=== PATIENT | female | born 1995 | race Two or more races ===

== ENCOUNTER 2018-06-05 01:57 | Emergency (ER) | payer MEDICAID ==
[~2018-06-05] VITALS: Ht 152.4 cm; Wt 59.0 kg
[2018-06-05] MEDS ORDERED: NKM (02:08)
--- NOTE | 2018-06-05 02:27 | Emergency Room Report ---
History of Present Illness General Chief Complaint: Chest Pain Source: Patient Present Illness HPI Patient presents with complaint of pain to the left upper chest patient reports of a specific pinpoint region with sharp stabbing type pain she has had this off -and-on for the past several months tonight however she felt that lasted for over the past 2 hours Denies any shortness of breath or pleurisy with this denies any vomiting or diarrhea and eyes any heaviness denies any recent trauma denies any medications Patient reports that she was essentially leaving in-laws house and sitting in the car she felt the discomfort Allergies: Coded Allergies: No Known Allergies (Unverified , 06/05/18) Patient History Past Medical History: see triage record Pertinent Family History: none Last Menstrual Period: 05/15/18 Now: No : 0 Para: 0 Reviewed Nursing Documentation: PMH: Agreed; PSxH: Agreed Nursing Documentation-PMH Past Medical History: No Stated History Review of Systems All Other Systems: negative except mentioned in HPI Physical Exam Vital Signs Date Time Temp Pulse Resp B/P (MAP) Pulse Ox O2 Delivery O2 Flow Rate FiO2 06/05/18 02:03 98.2 76 18 114/63 100 Room Air Sp02 EP Interpretation: reviewed, normal General Appearance: well appearing, no apparent distress Head: normocephalic, atraumatic Eyes: bilateral eye PERRL, bilateral eye EOMI ENT: hearing grossly normal, normal pharynx, TMs + canals normal, uvula midline Neck: full range of motion, supple, no meningismus, no bony tend Respiratory: lungs clear, normal breath sounds, no rhonchi, no respiratory distress, no retraction, no accessory muscle use Cardiovascular #1: normal peripheral pulses, regular rate, rhythm, no edema, no gallop, no JVD, no murmur Gastrointestinal: normal bowel sounds, non tender, soft, no mass, no organomegaly, non-distended, no guarding, no hernia, no pulsatile mass, no rebound Genitourinary: no CVA tenderness Musculoskeletal: normal inspection Neurologic: oriented x3, responsive, aoc operations intelligence chief III-XII nml as tested, motor strength/ tone normal, sensory intact Psychiatric: mood/affect normal Skin: normal color, no rash, warm/dry, palpation normal Lymphatic: normal inspection, no adenopathy Medical Decision Making Diagnostic Impression: Primary Impression: Chest pain ER Course Multiple differentials and consideration Including but not limited to cardiac, cardiopulmonary, vascular pathology Patient's EKG is normal The description of the pain does not necessarily sound cardiac in nature my consideration for pulmonary embolism is low x-ray also shows normal findings and patient is stable for close outpatient follow-up EKG Diagnostic Results Rate: normal Rhythm: NSR ST Segments: no acute changes Rhythm Strip Diag. Results EP Interpretation: yes Rate: 60 Rhythm: NSR, no PVC's, no ectopy Chest X-Ray Diagnostic Results Chest X-Ray Diagnostic Results : Chest X-Ray Ordered: Yes # of Views/Limited/Complete: 1 View Indication: Chest Pain EP Interpretation: Yes Interpretation: no consolidation, no effusion, no pneumothorax Impression: No acute disease Electronically Signed by: Alfredo Nixon DO Last Vital Signs Date Time Temp Pulse Resp B/P (MAP) Pulse Ox O2 Delivery O2 Flow Rate FiO2 06/05/18 02:03 98.2 76 18 114/63 100 Room Air Status: improved Disposition: HOME, SELF-CARE Condition: Improved Additional Instructions: Patient is provided with the discharge instructions notified to follow up with primary doctor in the next 2-3 days otherwise return to the er with any worsening symptoms. Please note that this report is being documented using [employer] technology. This can lead to erroneous entry secondary to incorrect interpretation by the dictating instrument. Alfredo Nixon DO Jun 05, 2018 02:27
[2018-06-05 02:42] VITALS: BP 114/63
--- NOTE | 2018-06-05 02:42 | NUR ---
ER Nurse Note: Pt came from home c/o pain in her chest. Pt stated she has chest pain for months, with pain lasting 5 minutes. Pt said pain is worse today; denies trauma. Pt a&ox4, VSS, no signs of distress. ERMD at pt side; will continue to monitor.
[2018-06-05 03:11] VITALS: BP 114/63
--- NOTE | 2018-06-05 03:12 | NUR ---
ER Nurse Note: Pt seen, treated, medically cleared for discharge by ERMD. Discharge instructions and prescriptions given with repeat verbalization by pt. Instructed pt to follow up with primary care physcian within one week. Pt a&ox4, VSS, no signs of distress. ID band removed. Pt left with all belongings with steady gait via own transportation.
--- NOTE | 2018-06-05 10:22 | Diagnostic Imaging Report ---
Indication: Chest pain Technique: One view of the chest Comparison: none Findings: Lungs and pleural spaces are clear. Heart size is normal Impression: No acute process
== END 2018-06-05 03:05 | disposition home or self-care (01) ==
LOC: EMR 02:12
DX: R07.89 Other chest pain (principal)
CPT/HCPCS: 71045; 99283